=== PATIENT | female | born 1965 | race American Indian/Alaskan Native ===

== ENCOUNTER 2020-03-13 08:31 | Outpatient (CLI) | payer MEDICARE ==
--- NOTE | 2020-03-13 10:12 | Mammography Report ---
DIGITAL DIAGNOSTIC MAMMOGRAM CONVENTIONAL, 03/13/2020 CLINICAL INFORMATION / INDICATION: Status post right breast biopsy with ultrasound guidance x2. Histo ry of right breast masses. TECHNIQUE: Digital right mammographic imaging was performed. COMPARISON: Right breast ultrasound performed earlier today. FINDINGS: Breast Density: The breasts are heterogeneously dense, which may obscure small masses. There is concordant clip placement within the previously biopsied 9:00 right breast masses. A retrope ctoral saline implant is unremarkable as visualized. No other significant abnormality is noted. IMPRESSION: Concordant clip placement within the right breast masses biopsied today. Please correlate with the pathology report. Follow up recommendation: Clinical exam Post biopsy imaging. A "normal" or negative report should not discourage follow up or biopsy of a clinically significant f inding. A written summary of these findings will be mailed to the patient. The patient will be entered into a mammography reporting system which will generate a reminder letter for the patient's next appointmen t at the appropriate interval. According to the [employer], yearly mammograms are recommended starting at age 40 and continuing as long as a woman is in good health. Breast MRI is recommended for women with an alverto roximately 20-25% or greater lifetime risk of breast cancer, including women with a strong family his tory of breast or ovarian cancer and women who have been treated for Hodgkin's disease. Signer Name: Yovani Batista MD Signed: 03/13/2020 10:08 AM Workstation Name: [id number]
--- NOTE | 2020-03-13 10:19 | Ultrasound Report ---
ULTRASOUND GUIDED RIGHT BREAST BIOPSY OF TWO MASSES, 03/13/2020 CLINICAL INFORMATION / INDICATION: Right breast masses. COMPARISON: Report for outside facility diagnostic mammogram and right breast ultrasound performed on 02/22/2020. PROCEDURE: Risks, benefits, and indications to the procedure were discussed with the patient in detail, includin g bleeding, infection, hematoma formation, and inadequate tissue sampling. The patient agreed to proc eed with both verbal and written consent. A timeout procedure was performed with two patient identifi ers. Preliminary ultrasound of the right breast demonstrated 2 solid hypoechoic masses in the 9:00 positio n located 4 and 9 cm from the nipple measuring 1.1 x 1.1 x 1.1 cm and 1.7 x 1.4 x 1.9 cm, respectivel y. In the 3:00 position 8 cm from the nipple at the site of a newly reported palpable abnormality by the patient is a solid hypoechoic mass containing a calcification and measuring 0.4 x 0.3 cm on image 13 of the ultrasound with associated posterior acoustic shadowing. Biopsy of the dominant masses in the 9:00 position was planned. The breast was prepped and draped in the usual sterile fashion. Lidoca ine 1% with and without epinephrine were used for local anesthesia. Under direct ultrasound guidance, multiple core samples were obtained of the 9:00 masses. A biopsy marker was then placed in each mas s. Biopsy device was removed and hemostasis achieved with manual pressure. A sterile dressing was alverto lied to the skin. The patient tolerated the procedure without difficulty. No complications were encountered. Postbiopsy instructions were discussed with the patient and given in writing. Specimens were sent to pathology. IMPRESSION: 1. Technically successful ultrasound guided biopsy of 2 9:00 right breast masses as above. 2. Additional small mass in the 3:00 right breast as above is of uncertain significance, but appears similar in appearance to the 9:00 masses. If clinically indicated, the patient may return for biopsy of this mass with ultrasound guidance. Biopsy results are pending and will be reported in an addendum. Signer Name: Yovani Batista MD Signed: 03/13/2020 10:14 AM Workstation Name: [id number]
== END 2020-03-13 08:32 | disposition home or self-care (01) ==
LOC: SPVWC 08:31
PROVIDERS: ATTEND Surgery
DX: N63.11 Unspecified lump in the right breast, upper outer quadrant (principal); R92.8 Other abnormal and inconclusive findings on diagnostic imaging of breast; N64.89 Other specified disorders of breast; F17.210 Nicotine dependence, cigarettes, uncomplicated; Z87.01 Personal history of pneumonia (recurrent); Z79.899 Other long term (current) drug therapy
CPT/HCPCS: 88305; 88341; 88342

== ENCOUNTER 2020-04-03 09:40 | Outpatient (CLI) | payer MEDICARE ==
--- NOTE | 2020-04-03 14:01 | Magnetic Resonance Report ---
Bilateral breast MRI with and without contrast. History: New diagnosis right breast cancer at 2 sites Procedure: Axial T1 and T2-weighted fat-sat images were obtained precontrast. 16 cc MultiHance was i njected intravenously and serial axial T1-weighted images with fat saturation were obtained postcontr ast. 3-D MIP projections, Kinetic analysis and subtraction imaging was utilized to evaluate. A LeadiD 8 channel breast coil was utilized for image acquisition. Comparison: Right breast ultrasound and ultrasound-guided biopsy 03/13/2020, right postbiopsy mammogram 03/13/2020 Findings: Background level of enhancement is mild. In the lateral right axilla a small node is seen which is not significantly enlarged with a short axi s diameter of only 6 mm but appears mildly thickened with only minimal fatty hilum. Multiple other no lydia are seen in both sacroiliac which are not suspicious. No abnormal bone marrow signal is seen. No significant chest wall enhancement is noted. Right breast: Implant appears intact. The 2 recent biopsy sites are noted. At the posterior biopsy si te clip is seen within the abnormally enhancing 2.1 cm mass. This is within 7 mm of the lateral skin surface, directly abuts the implant, approximate 6 cm from the chest wall and roughly 9 cm from the n ipple. Abnormal enhancement with washout is seen nearly contiguously though slightly patchily anterio rly along the lateral breast to the site of the more anterior mass and biopsy. The mass at this locat ion measures 1.4 cm in diameter and is located approximately 4 cm from the nipple, 3 mm from the ante rolateral skin surface, 11.5 cm the chest wall, and 2.3 cm from the implant. The abnormal enhancement extends mildly superior to the midportion of this zone and the entire area of abnormal enhancement m easures roughly 6 x 5 x 2.5 considering greatest dimensions though generally is seen in a band in mos t areas measuring 1.5 cm or less. Enhancement is mostly in the outer lower quadrant though in its mos t superior projection extends mildly to and slightly above the level of the nipple. I do not see wide ly additional enhancement in the right breast. Left breast: Implant appears intact. There is likely a small intramammary node inferiorly. Mild stipp led enhancement is seen. No suspicious lesions are noted. Impression: 1. The 2 areas of known malignancy are seen in the lateral right breast with a nearly contiguous band of abnormal enhancement extending between the 2 as described. No widely separate areas of enhancemen t are noted though the band of abnormal enhancement laterally is moderately extensive. 2. No suspicious lesions are seen in the left breast 3. Small mildly indeterminate node is seen in the right axilla BIRADS: 6: Known diagnosis breast cancer Signer Name: Apolinar Arnold MD Signed: 04/03/2020 1:56 PM Workstation Name: [id number]
== END 2020-04-03 09:41 | disposition home or self-care (01) ==
LOC: SPVIMAG 09:40
PROVIDERS: ATTEND Surgery
DX: C50.411 Malignant neoplasm of upper-outer quadrant of right female breast (principal); N64.89 Other specified disorders of breast
CPT/HCPCS: A9577; C8908; 77049

== ENCOUNTER 2020-04-04 10:48 | Outpatient (CLI) | payer MEDICARE ==
--- NOTE | 2020-04-04 14:35 | Ultrasound Report ---
Limited right axillary Ultrasound HISTORY: MALIGNANT NEOPLASM OF UPPER. History of breast cancer, recent MRI from yesterday question a right axillary lymph node. TECHNIQUE: Grayscale and color imaging performed. COMPARISON: Breast MRI from 04/03/2020 and diagnostic mammogram from 03/13/2020. FINDINGS: There is a single shoddy right axillary lymph node which demonstrates a normal configuratio n with preserved hyperechoic fatty hilum. The lymph node is normal in short axis measuring 6 mm and t he cortex is less than 3 mm. There is no internal hyperemia or cortical lobulation. IMPRESSION: Single shoddy right axillary lymph node. No biopsy performed today. I have counseled the patient on this finding and advised her that if the lymph node persists/enlarges or becomes painful t o follow up for repeat imaging and we would be happy to biopsy if needed. Signer Name: Delmar Krishna MD Signed: 04/04/2020 2:31 PM Workstation Name: [id number]
== END 2020-04-04 10:49 | disposition home or self-care (01) ==
LOC: US 10:48
PROVIDERS: ATTEND Surgery
DX: C50.411 Malignant neoplasm of upper-outer quadrant of right female breast (principal)

== ENCOUNTER 2020-05-19 18:00 | Emergency (ER) | payer MEDICARE ==
[2020-05-19 20:01] LABS: Hematocrit 46.7 % (30.3-42.9); Hemoglobin 15.9 gm/dl (10.1-14.3); Mean Corpuscular HGB Conc 34 % (30-34); Mean Corpuscular Volume 94 fl (79-97); Platelet Count 114 K/mm3 (140-440); Red Blood Count 4.99 M/mm3 (3.65-5.03)
[2020-05-19 20:24] LABS: Alanine Aminotransferase 101 units/L (7-56); BUN/Creatinine Ratio 17; Blood Urea Nitrogen 10 mg/dL (7-17); Calcium 8.9 mg/dL (8.4-10.2); Hemolysis Index 2
--- NOTE | 2020-05-19 21:59 | Emergency Department Report ---
- General Chief complaint: Weakness Stated complaint: FATIGUE, NAUSEA, DEHYDRATION, NO BM 5 DAYS Time Seen by Provider: 05/19/20 19:10 Source: patient Mode of arrival: Ambulatory Limitations: No Limitations - History of Present Illness Initial comments: 54-year-old female, history of breast cancer, presents to ED with generalized weakness and nausea last 5 days. Patient states she received her first chemotherapy treatment 5 days ago. Since then she has been nauseated with no appetite, decreased PO intake. Patient denies vomiting. Patient reports she has had some urinary frequency. She has not had a bowel movement in 5 days. She denies any fever, cough, shortness of breath. MD Complaint: generalized weakness -: days(s) (5) Location: generalized Severity: moderate Quality: other (painless) Consistency: constant Improves with: none Worsens with: none Context: new medication (Chemotherapy) Associated Symptoms: loss of appetite, nausea/vomiting. denies: chest pain, fever/chills, headaches, shortness of breath - Related Data Home Medications Medication Instructions Recorded Confirmed Last Taken Sertraline [Zoloft] 150 mg PO QDAY 03/09/14 03/09/14 03/08/14 09:00 traZODone [Desyrel] 50 mg PO QDAY 03/09/14 03/09/14 Unknown Previous Rx's Medication Instructions Recorded Last Taken Type Benzonatate [Tessalon Perles] 100 mg PO Q8HR PRN #20 capsule 03/09/14 Unknown Rx Prednisone [Prednisone 10 mg 10 mg PO .TAPER #1 tab.ds.pk 03/09/14 Unknown Rx (6-Day Pack, 21 Tabs)] Promethazine /Codeine 5 ml PO Q6H PRN #30 ml 03/09/14 Unknown Rx [Phenergan/Codeine 6.25-10 mg/5 ml] Docusate Sodium [Colace] 100 mg PO BID PRN #30 capsule 05/20/20 Unknown Rx Ondansetron [Zofran Odt] 4 mg PO Q8HR PRN #20 tab.rapdis 05/20/20 Unknown Rx cephALEXin [Keflex] 500 mg PO Q12HR 3 Days #6 cap 05/20/20 Unknown Rx Allergies Allergy/AdvReac Type Severity Reaction Status Date / Time No Known Allergies Allergy Verified 03/09/14 07:54 ED Review of Systems ROS: Stated complaint: FATIGUE, NAUSEA, DEHYDRATION, NO BM 5 DAYS Other details as noted in HPI Comment: All other systems reviewed and negative Constitutional: malaise. denies: chills, fever Respiratory: denies: cough, shortness of breath Cardiovascular: denies: chest pain Gastrointestinal: nausea. denies: abdominal pain, vomiting, diarrhea Genitourinary: frequency ED Past Medical Hx - Past Medical History Previous Medical History?: Yes Hx of Cancer: Yes (breast) Hx Psychiatric Treatment: Yes (DEPRESSION , BIPOLAR) Additional medical history: Alejandro - Surgical History Past Surgical History?: Yes Hx Breast Surgery: Yes (BREAST AUGMENTATION) Additional Surgical History: TUBAL LIGATION - Social History Smoking Status: Current Every Day Smoker Substance Use Type: Alcohol, Prescribed - Medications Home Medications: Home Medications Medication Instructions Recorded Confirmed Last Taken Type Benzonatate [Tessalon Perles] 100 mg PO Q8HR PRN #20 capsule 03/09/14 Unknown Rx Prednisone [Prednisone 10 mg 10 mg PO .TAPER #1 tab.ds.pk 03/09/14 Unknown Rx (6-Day Pack, 21 Tabs)] Promethazine /Codeine 5 ml PO Q6H PRN #30 ml 03/09/14 Unknown Rx [Phenergan/Codeine 6.25-10 mg/5 ml] Sertraline [Zoloft] 150 mg PO QDAY 03/09/14 03/09/14 03/08/14 09:00 History traZODone [Desyrel] 50 mg PO QDAY 03/09/14 03/09/14 Unknown History Docusate Sodium [Colace] 100 mg PO BID PRN #30 capsule 05/20/20 Unknown Rx Ondansetron [Zofran Odt] 4 mg PO Q8HR PRN #20 tab.rapdis 05/20/20 Unknown Rx cephALEXin [Keflex] 500 mg PO Q12HR 3 Days #6 cap 05/20/20 Unknown Rx ED Physical Exam - General Limitations: No Limitations General appearance: alert, in no apparent distress - Head Head exam: Present: atraumatic, normocephalic - Eye Eye exam: Present: normal appearance, EOMI - ENT ENT exam: Present: mucous membranes moist - Neck Neck exam: Present: normal inspection - Respiratory Respiratory exam: Present: normal lung sounds bilaterally. Absent: respiratory distress - Cardiovascular Cardiovascular Exam: Present: regular rate, normal rhythm - GI/Abdominal GI/Abdominal exam: Present: soft. Absent: distended, tenderness - Extremities Exam Extremities exam: Present: normal inspection - Neurological Exam Neurological exam: Present: alert, oriented X3 - Psychiatric Psychiatric exam: Present: normal affect, normal mood - Skin Skin exam: Present: warm, dry, intact, normal color ED Course Vital Signs 05/19/20 05/19/20 05/19/20 22:02 22:05 23:55 Temperature 98.7 F Pulse Rate 91 H 88 Respiratory 19 19 11 L Rate Blood Pressure 137/73 149/74 [Left] O2 Sat by Pulse 97 99 Oximetry 05/20/20 01:05 Temperature Pulse Rate 95 H Respiratory 15 Rate Blood Pressure 156/82 [Left] O2 Sat by Pulse 98 Oximetry ED Medical Decision Making - Lab Data Result diagrams: 05/19/20 19:34 05/19/20 19:34 - Medical Decision Making 54-year-old female presents to ED with generalized weakness and nausea for the last 5 days following her first chemotherapy treatment. Labs are unremarkable, except for some mild elevations in her LFTs. Vital signs are stable. Patient given IV fluid bolus and Zofran here in the ED. She states she is feeling much better at this time and is comfortable with discharge home. Patient will be given a prescription for Zofran. Patient reports she has a follow-up appointment with her oncologist in 2 days. Return precautions given. - Differential Diagnosis Dehydration, renal failure, electrolyte abnormality Critical care attestation.: If time is entered above; I have spent that time in minutes in the direct care of this critically ill patient, excluding procedure time. ED Disposition Clinical Impression: UTI (urinary tract infection), Chemotherapy-induced nausea, Generalized weakness Disposition: - TO HOME OR SELFCARE Is pt being admited?: No Condition: Stable Instructions: Chemotherapy, Urinary Tract Infection, Adult, [id number] Prescriptions: Docusate Sodium [Colace] 100 mg PO BID PRN #30 capsule PRN Reason: Constipation cephALEXin [Keflex] 500 mg PO Q12HR 3 Days #6 cap Ondansetron [Zofran Odt] 4 mg PO Q8HR PRN #20 tab.rapdis PRN Reason: Vomiting Referrals: PRIMARY CARE, [Primary Care Provider] - 3-5 Days Time of Disposition: 00:46
[2020-05-19] MEDS ORDERED: ONDANSETRON 4 MG/2 ML INJ IV ONE (22:00)
[2020-05-19] MEDS ORDERED: SODIUM CHLORIDE 0.9% 1000 ML 1,000 ML IV ONE (22:00)
[2020-05-20 00:13] LABS: Band Neutrophils # (Manual) 0.5 K/mm3; Total Cells Counted 100
[2020-05-20 00:14] LABS: Platelet Estimate Consistent w Auto; RBC Morphology Normal
[2020-05-20 00:31] LABS: Bacteria,Urine 2+ /HPF (Negative); Bilirubin,Urine NEG (Negative); Blood,Urine SM (Negative); Color,Urine Amber (Yellow); Mucus,Urine 2+ /HPF; Protein,Urine <15 mg/dL mg/dL (Negative)
[2020-05-20 01:06] VITALS: BP 156/82
== END 2020-05-20 01:05 | disposition home or self-care (01) ==
LOC: ED 18:00
DX: R11.0 Nausea (principal); T45.1X5A Adverse effect of antineoplastic and immunosuppressive drugs, initial encounter; N39.0 Urinary tract infection, site not specified; R53.1 Weakness; F31.9 Bipolar disorder, unspecified; F17.200 Nicotine dependence, unspecified, uncomplicated; Z98.51 Tubal ligation status; Z98.890 Other specified postprocedural states; Z79.899 Other long term (current) drug therapy; Y92.89 Other specified places as the place of occurrence of the external cause
CPT/HCPCS: 36415; 80053; 81001; 83690; 85007; 85025; 96361; 96374; 99283; J2405; J7030